=== PATIENT | male | born 1970 | race Caucasian/White ===

== ENCOUNTER 2020-08-27 11:41 | Emergency (ER) | payer BC ==
[2020-08-27 12:23] VITALS: BP 158/87; PULSE 72
--- NOTE | 2020-08-27 12:31 | EDM.PDOC ---
<Elda Kraft - Last Filed: 08/27/20 14:49> ED HPI GENERAL MEDICAL PROBLEM - General Chief Complaint: Gastrointestinal Problem Stated Complaint: LOWER LEFT SIDE PAIN THROWING UP Time Seen by Provider: 08/27/20 12:35 Source of Information: Reports: Patient, RN, RN Notes Reviewed History Limitations: Reports: No Limitations - History of Present Illness INITIAL COMMENTS - FREE TEXT/NARRATIVE: pt to ER ambulatory with c/o LLQ pain that radiates to his back, pain began this am between 7-8am. pt unable to rate pain with a number, states "its up there pretty good." reports daily BM which he has not had a BM since yesterday am. unable to pass flatulence. reports voiding urine without difficulty, denies hematuria. denies vomiting, reports dry heaves this am. denies hx of GI problems, constipation, diarrhea, diverticulosis, abdominal surgery. has not taken anything for pain, states pain in better if he can get up and move around. denies fever, chills, malaise, or recent exposure to illnesses. denies blood in stools or hemorrhoids. - Related Data Allergies Allergy/AdvReac Type Severity Reaction Status Date / Time No Known Allergies Allergy Verified 08/27/20 11:55 Home Meds: Home Meds atenoloL [Atenolol] 25 mg PO DAILY 09/11/15 [History] Losartan [Cozaar] 50 mg PO DAILY 08/27/20 [History] allopurinoL [Zyloprim] 100 mg PO DAILY 08/27/20 [History] atorvaSTATin [Lipitor] 10 mg PO DAILY 08/27/20 [History] Past Medical History HEENT History: Reports: None Cardiovascular History: Reports: Hypertension Respiratory History: Reports: None Gastrointestinal History: Reports: None Genitourinary History: Reports: None Musculoskeletal History: Reports: Gout Neurological History: Reports: None Psychiatric History: Reports: None Endocrine/Metabolic History: Reports: None Hematologic History: Reports: None Immunologic History: Reports: None Oncologic (Cancer) History: Reports: None Dermatologic History: Reports: None Social & Family History - Tobacco Use Tobacco Use Status *Q: Never Tobacco User - Caffeine Use Caffeine Use: Reports: Soda - Recreational Drug Use Recreational Drug Use: No ED ROS GENERAL - Review of Systems Review Of Systems: Comprehensive ROS is negative, except as noted in HPI. ED EXAM, GI/ABD - Physical Exam Exam: See Below Exam Limited By: No Limitations General Appearance: Alert, WD/WN, No Apparent Distress, Moderate Distress Eyes: Bilateral: Normal Appearance Ears: Normal External Exam, Hearing Grossly Normal Nose: Normal Inspection Throat/Mouth: Normal Inspection, Normal Teeth, Normal Voice, No Airway Compromise Head: Atraumatic, Normocephalic Neck: Normal Inspection, Supple, Non-Tender, Full Range of Motion Respiratory/Chest: No Respiratory Distress, Lungs Clear, Normal Breath Sounds, No Accessory Muscle Use, Chest Non-Tender Cardiovascular: Normal Peripheral Pulses, Regular Rate, Rhythm, No Edema GI/Abdominal Exam: Normal Bowel Sounds (Male) Exam: Deferred Rectal (Males) Exam: Deferred Back Exam: Normal Inspection, Full Range of Motion Extremities: Normal Inspection, Normal Range of Motion, Non-Tender, No Pedal Edema Neurological: Alert, Oriented, CN II-XII Intact, Normal Cognition Psychiatric: Normal Affect, Normal Mood Skin Exam: Warm, Dry, Intact, Normal Color, No Rash Lymphatic: No Adenopathy Departure - Departure Time of Disposition: 14:26 Disposition: Home, Self-Care 01 Condition: Good Clinical Impression: Kidney stone - Discharge Information *PRESCRIPTION DRUG MONITORING PROGRAM REVIEWED*: No *COPY OF PRESCRIPTION DRUG MONITORING REPORT IN PATIENT AMA: No Instructions: Kidney Stones Forms: ED Department Discharge Additional Instructions: Increase fluid intake. RX: Flomax 0.4 mg by mouth daily x 7 days. Toradol 30 mg one tab by mouth every 6 hours as needed for pain. Return to ER if symptoms worsen over the weekend. Follow-up with Primary Care Provider in one to two weeks or sooner if symptoms persist despite medications. Sepsis Event Note (ED) - Evaluation Sepsis Screening Result: No Definite Risk <Luis Hammond - Last Filed: 08/27/20 16:45> Course - Vital Signs Last Recorded V/S: Last Vital Signs Temp 96.5 F L 08/27/20 11:45 Pulse 72 08/27/20 11:45 Resp 18 08/27/20 11:45 BP 158/87 H 08/27/20 11:45 Pulse Ox 100 08/27/20 11:45 - Orders/Labs/Meds Labs: Laboratory Tests 08/27/20 08/27/20 08/27/20 Range/Units 12:29 12:29 12:48 WBC 11.6 H (5.0-10.0) 10^3/uL RBC 4.72 (4.6-6.2) 10^6/uL Hgb 14.8 (14.0-18.0) g/dL Hct 41.6 (40.0-54.0) % MCV 88.1 (80-100) fL MCH 31.4 (27.0-34.0) pg MCHC 35.6 H (33.0-35.0) g/dL Plt Count 217 (150-450) 10^3/uL Neut % (Auto) 75.8 H (42.2-75.2) % Lymph % (Auto) 15.1 L (20.5-50.1) % Sanders % (Auto) 7.7 (2-8) % Eos % (Auto) 1.1 (1.0-3.0) % Baso % (Auto) 0.3 (0.0-1.0) % Sodium 140 (136-145) mmol/L Potassium 4.4 (3.5-5.1) mmol/L Chloride 104 (98-107) mmol/L Carbon Dioxide 28 (21-32) mmol/L Anion Gap 12.4 (7-13) mEq/L BUN 24 H (7-18) mg/dL Creatinine 1.48 H (0.70-1.30) mg/dL Est Cr Clr Drug Dosing 53.89 mL/min Estimated GFR (MDRD) 50 BUN/Creatinine Ratio 16.2 (No establ ref range) Glucose 179 H (74-99) mg/dL Calcium 9.9 (8.5-10.1) mg/dL Total Bilirubin 0.5 (0.2-1.0) mg/dL AST 21 (15-37) U/L ALT 36 (16-63) U/L Alkaline Phosphatase 73 (46-116) U/L Total Protein 7.9 (6.4-8.2) g/dL Albumin 4.5 (3.4-5.0) g/dL Globulin 3.4 Albumin/Globulin Ratio 1.3 Urine Color Yellow (YELLOW) Urine Appearance Clear (CLEAR) Urine pH 6.5 (5.0-9.0) Ur Specific [place] >= 1.030 (1.005-1.030) Urine Protein Negative (NEGATIVE) Urine Glucose (UA) Negative (NEGATIVE) Urine Ketones Negative (NEGATIVE) Urine Occult Blood Moderate H (NEGATIVE) Urine Nitrite Negative (NEGATIVE) Urine Bilirubin Negative (NEGATIVE) Urine Urobilinogen 0.2 (0.2-1.0) mg/dL Ur Leukocyte Esterase Negative (NEGATIVE) Urine RBC 20-30 H /HPF Urine WBC 0-5 (0-5/HPF) /HPF Ur Epithelial Cells Rare (NOT SEEN) /HPF Amorphous Sediment Rare (NOT SEEN) /HPF Urine Bacteria Rare (0-FEW/HPF) /HPF Urine Mucus Rare (NOT SEEN) /LPF Meds: Medications Discontinued Medications Generic Name Dose Route Start Last Admin Trade Name Freq PRN Reason Stop Dose Admin Sodium Chloride 1,000 mls @ 999 mls/hr 08/27/20 12:56 08/27/20 13:57 Normal Saline IV 08/27/20 13:56 Not Given .BOLUS ONE Sodium Chloride 1,000 mls @ 999 mls/hr 08/27/20 13:01 08/27/20 13:52 Normal Saline IV 08/27/20 14:01 999 mls/hr .BOLUS ONE Administration Iopamidol 100 ml 08/27/20 13:02 08/27/20 13:59 Isovue-300 (61%) IVPUSH 08/27/20 13:03 100 ml ONETIME ONE Administration Ketorolac Tromethamine 30 mg 08/27/20 13:56 08/27/20 14:06 Toradol IVPUSH 08/27/20 13:57 30 mg ONETIME ONE Administration Tamsulosin HCl 0.4 mg 08/27/20 13:56 08/27/20 14:05 Flomax PO 08/27/20 13:57 0.4 mg ONETIME ONE Administration - Re-Assessments/Exams Free Text/Narrative Re-Assessment/Exam: 08/27/20 14:42 I personally performed or re-performed the physical examination and medical decision making. I have verified all student documentation or findings, including history, physical exam and/or medical decision making. Sepsis Event Note (ED) - Focused Exam Vital Signs: Vital Signs Temp Pulse Resp BP Pulse Ox 08/27/20 11:45 96.5 F L 72 18 158/87 H 100
[2020-08-27 12:53] LABS: ANION GAP 12.4 mEq/L (7-13)
[2020-08-27] MEDS ORDERED: diphenhydrAMINE 50 MG/ML SDV IVPUSH ONE (12:55)
[2020-08-27] MEDS ORDERED: Sodium Chloride 0.9% 1,000 ML IV ONE ×2 (12:56→13:01)
[2020-08-27] MEDS ORDERED: Iopamidol 612 MG/ML 100 ML Bottle IVPUSH ONE (13:02)
[2020-08-27] MEDS ORDERED: Ketorolac 30 MG/ML SDV IVPUSH ONE (13:56)
[2020-08-27] MEDS ORDERED: Tamsulosin 0.4 MG Cap.ER PO ONE (13:56)
--- NOTE | 2020-08-27 14:15 | CT ---
EXAMINATION: Abdomen Pelvis w Cont SEX: Male AGE: 50 years CLINICAL HISTORY: 50-year-old male (ED) complaining of LLQ pain and elevated WBC (11,600). Scan technique: Volume acquisition of data from the abdomen and pelvis obtained without oral contrast but during the intravenous administration 100 cc nonionic Isovue contrast at 3 cc/s via injector while patient was lying supine on the Siemens multislice scanner [place], [place]. All data archived in the PACS system for storage, reformatting axial/sagittal/coronal planes and study. Interpretation: Abnormal. Left mid ureteral calcification (STONE). 1. Several small diverticula sigmoid colon without associated signs of inflammation i.e. no pericolonic inflammatory "dirty" peritoneal fat, abscess, mechanical bowel obstruction, ascites or free air. 2. Normal appendix RLQ. Small and large bowel pattern unremarkable. 3. Gallbladder (RUQ), fatty liver, stomach, spleen, pancreas and adrenal glands unremarkable. 4. Note: 2 mm diameter oval calculus (calcified stone) mid left ureter with minimal ipsilateral pyelocaliectasis. 5. Relative decreased contrast perfusion ipsilateral left kidney (subtle mild pyelectasis; tiny calculus lower pole left kidney). Urinary bladder unremarkable. 5. No pelvic or abdominal mass lesion. No mesenteric or retroperitoneal lymphadenopathy. 6. Normal caliber aortoiliac vessels. Lumbar spine unremarkable. Lung bases clear. Normal heart.
== END 2020-08-27 15:08 | disposition home or self-care (01) ==
LOC: DL.ED 11:41
DX: N20.2 Calculus of kidney with calculus of ureter (principal); I10 Essential (primary) hypertension; M10.9 Gout, unspecified; Z79.899 Other long term (current) drug therapy
CPT/HCPCS: 36415; 74177; 80053; 81001; 85025; 96374; 99284; A9270; J1885; J7030; Q9967

== ENCOUNTER 2023-08-18 07:25 | Emergency (ER) | payer BC ==
[2023-08-18] MEDS ORDERED: Ondansetron 4 MG/2 ML SDV IVPUSH ONE ×2 (07:46→09:01)
[2023-08-18] MEDS ORDERED: Sodium Chloride 0.9% 10 ML Syringe FLUSH PRN (07:46)
[2023-08-18] MEDS ORDERED: HYDROmorphone 1 MG/ML Syringe IVPUSH ONE (07:46)
[2023-08-18 07:50] LABS: HEMATOCRIT 43.4 % (40.0-54.0); HEMOGLOBIN 15.1 g/dL (14.0-18.0); MEAN CORPUSCULAR HEMOGLOBIN 30.6 pg (27.0-34.0); MEAN CORPUSCULAR HGB CONC 34.8 g/dL (33.0-35.0); MEAN CORPUSCULAR VOLUME 87.9 fL (80-100); PLATELET COUNT,PLT 268 10^3/uL (150-450); RED BLOOD CELL COUNT 4.94 10^6/uL (4.6-6.2); WHITE BLOOD CELL COUNT,WBC 13.6 10^3/uL (5.0-10.0)
[2023-08-18 08:14] LABS: LACTIC ACID 1.8 mmol/L (0.4-2.0)
[2023-08-18 08:21] LABS: A/G RATIO 1.1; ALANINE AMINOTRANSFERASE,ALT 41 U/L (16-63); ALBUMIN 4.2 g/dL (3.4-5.0); ALKALINE PHOSPHATASE 73 U/L (46-116); AMYLASE 32 U/L (25-115); ANION GAP 12.8 mEq/L (7-13); ASPARTATE AMNIOTRANSFERASE,AST 19 U/L (15-37); BILIRUBIN TOTAL 0.5 mg/dL (0.2-1.0); BLOOD UREA NITROGEN,BUN 23 mg/dL (7-18); BUN/CREATININE RATIO 19.7 (No establ ref range); C-REACTIVE PROTEIN < 0.50 ng/dL (<=0.50); CARBON DIOXIDE,CO2 28 mmol/L (21-32); CHLORIDE,CL 99 mmol/L (98-107); CREATININE 1.17 mg/dL (0.70-1.30); EST CRCL DRUG DOSING (CG) 65.89 mL/min; ESTIMATED GFR 75 mL/min (>=60); ETHANOL BLOOD MEDICAL 3 mg/dL (0); GLUCOSE RANDOM 216 mg/dL (70-99); LIPASE 28 U/L (16-77); MAGNESIUM 1.8 mg/dL (1.8-2.4); POTASSIUM,K 3.8 mmol/L (3.5-5.1); PROTEIN TOTAL,TP 8.1 g/dL (6.4-8.2); SODIUM,NA 136 mmol/L (136-145)
[2023-08-18] MEDS ORDERED: Ketorolac 30 MG/ML SDV IVPUSH ONE (08:32)
[2023-08-18 08:34] LABS: LYMPHOCYTES PERCENT MAN 19 % (20-50); MONOCYTES PERCENT MAN 7 % (2-8); SEG NEUTROPHILS PERCENT MAN 74 % (42-75)
[2023-08-18] MEDS ORDERED: Sodium Chloride 0.9% 1,000 ML IV ONE (09:00)
[2023-08-18] MEDS ORDERED: Tamsulosin 0.4 MG Cap.ER PO ONE (09:03)
[2023-08-18 09:32] LABS: APPEARANCE,URINE CLEAR (CLEAR); BILIRUBIN,URINE NEGATIVE (NEGATIVE); COLOR,URINE YELLOW (YELLOW); GLUCOSE,URINE NEGATIVE (NEGATIVE); KETONES,URINE NEGATIVE (NEGATIVE); LEUKOCYTE ESTERASE,URINE NEGATIVE (NEGATIVE); NITRITE,URINE NEGATIVE (NEGATIVE); OCCULT BLOOD,URINE MODERATE (NEGATIVE); PH,URINE 5.5 (5.0-9.0); PROTEIN,URINE NEGATIVE (NEGATIVE); UROBILINOGEN,URINE 0.2 mg/dL (0.2-1.0)
[2023-08-18 09:33] LABS: AMPHETAMINES,URINE NEGATIVE (NEGATIVE); BARBITURATES,URINE NEGATIVE (NEGATIVE); BENZODIAZEPINE,URINE NEGATIVE (NEGATIVE); MDMA (ECSTASY), URINE NEGATIVE (NEGATIVE); METHADONE,URINE NEGATIVE (NEGATIVE); METHAMPHETAMINES,URINE NEGATIVE (NEGATIVE); OPIATES,URINE POSITIVE (NEGATIVE); OXYCODONE,URINE NEGATIVE (NEGATIVE); PHENCYCLIDINE,URINE NEGATIVE (NEGATIVE); TCA,URINE NEGATIVE (NEGATIVE)
[2023-08-18 09:38] LABS: AMORPHOUS SEDIMENT,URINE RARE /HPF (NOT SEEN); BACTERIA,URINE RARE /HPF (0-FEW/HPF); EPITHELIAL CELLS,URINE NOT SEEN /HPF (NOT SEEN); MUCUS,URINE RARE /LPF (NOT SEEN); WBC,URINE 0-5 /HPF (0-5/HPF)
[2023-08-18 10:29] VITALS: BP 175/92; PULSE 66
== END 2023-08-18 10:25 | disposition home or self-care (01) ==
LOC: DL.ED 07:25
DX: N13.2 Hydronephrosis with renal and ureteral calculous obstruction (principal); N23 Unspecified renal colic; I10 Essential (primary) hypertension; Z79.899 Other long term (current) drug therapy; Z86.16 Personal history of COVID-19
CPT/HCPCS: 36415; 74176; 80053; 80305; 80307; 81001; 82150; 83605; 83690; 83735; 85025; 86140; 96374; 96375; 96376; 99284; A9270; J1170; J1885; J2405; J7030; J3490

== ENCOUNTER 2023-10-20 11:07 | Emergency (ER) | payer BC ==
[2023-10-20 11:59] VITALS: BP 171/94; PULSE 96
[2023-10-20] MEDS ORDERED: Sodium Chloride 0.9% 10 ML Syringe FLUSH PRN (12:25)
[2023-10-20] MEDS ORDERED: methylPREDNISolone Sodium Succinate 125 MG/2 ML SDV IVPUSH ONE (12:25)
[2023-10-20 12:42] LABS: BASOPHILS PERCENT AUTO 0.4 % (0.0-1.0); EOSINOPHILS PERCENT AUTO 3.5 % (1.0-3.0); HEMATOCRIT 42.1 % (40.0-54.0); HEMOGLOBIN 14.4 g/dL (14.0-18.0); LYMPHOCYTES PERCENT AUTO 22.4 % (20.5-50.1); MEAN CORPUSCULAR HEMOGLOBIN 30.7 pg (27.0-34.0); MEAN CORPUSCULAR HGB CONC 34.2 g/dL (33.0-35.0); MEAN CORPUSCULAR VOLUME 89.8 fL (80-100); MONOCYTES PERCENT AUTO 9.3 % (2-8); NEUTROPHILS PERCENT AUTO 64.4 % (42.2-75.2); PLATELET COUNT,PLT 323 10^3/uL (150-450); RED BLOOD CELL COUNT 4.69 10^6/uL (4.6-6.2); WHITE BLOOD CELL COUNT,WBC 8.2 10^3/uL (5.0-10.0)
[2023-10-20 13:05] LABS: A/G RATIO 0.9; ALBUMIN 3.6 g/dL (3.4-5.0); BILIRUBIN TOTAL 0.6 mg/dL (0.2-1.0); BUN/CREATININE RATIO 18.3 (No establ ref range); CALCIUM 9.6 mg/dL (8.5-10.1); CREATININE 1.09 mg/dL (0.70-1.30); EST CRCL DRUG DOSING (CG) 68.18 mL/min; PROTEIN TOTAL,TP 7.7 g/dL (6.4-8.2)
[2023-10-20] MEDS ORDERED: Iopamidol 612 MG/ML 100 ML Bottle IVPUSH ONE (13:34)
[2023-10-20] MEDS ORDERED: Sulfamethoxazole/Trimethoprim 800-160 MG Tab PO ONE ×2 (14:46→15:18)
[2023-10-20] MEDS ORDERED: Take Home: Sulfamethoxazole/Trimethoprim 800-160 MG Tab, 6 Tab Pack PO ONE (15:19)
== END 2023-10-20 15:43 | disposition home or self-care (01) ==
LOC: DL.ED 11:07
DX: M54.16 Radiculopathy, lumbar region (principal); I10 Essential (primary) hypertension; Z86.16 Personal history of COVID-19; Z79.899 Other long term (current) drug therapy; Z98.890 Other specified postprocedural states
CPT/HCPCS: 36415; 72132; 80053; 85025; 96374; 99284; A9270; J2930; Q9967; J3490